=== PATIENT | female | born 1990 | race Caucasian/White ===

== ENCOUNTER 2023-02-23 14:07 | Emergency (ER) | payer OTHER ==
[~2023-02-23] VITALS: Ht 177.8 cm; Wt 92.5 kg
[2023-02-23 15:00] LABS: MEAN CORPUSCULAR HEMOGLOBIN 31.7 pg (27.0-33.0); MEAN CORPUSCULAR HGB CONC 33.3 g/dl (32.0-36.5); MEAN CORPUSCULAR VOLUME 95.2 fl (80.0-96.0); PLATELET COUNT, AUTOMATED 270 10^3/uL (150-450); RED BLOOD COUNT 4.41 10^6/uL (4.00-5.40); WHITE BLOOD COUNT 7.8 10^3/uL (4.0-10.0)
[2023-02-23] MEDS ORDERED: PREN1TAB18 PO (16:19)
[2023-02-23 17:41] VITALS: BP 132/79
== END 2023-02-23 17:50 | disposition home or self-care (01) ==
LOC: M ED 14:07
DX: O20.0 Threatened abortion (principal); Z3A.01 Less than 8 weeks gestation of pregnancy